=== PATIENT | female | born 1985 | race Hispanic/Latino ===

== ENCOUNTER 2019-06-17 15:02 | Outpatient (CLI) | payer OTHER, SELFPAY ==
[2019-06-17 15:43] LABS: Alanine Aminotransferase 40 U/L (4-35); Aspartate Amino Transferase 40 U/L (14-36)
== END 2019-06-17 15:03 | disposition home or self-care (01) ==
LOC: ANHLAB 15:04
PROVIDERS: PCP Family Medicine; Visit Provider Podiatrist Foot & Ankle Surgery
DX: B35.1 Tinea unguium (principal)
CPT/HCPCS: 36415; 84450; 84460

== ENCOUNTER 2020-04-29 02:14 | Outpatient (CLI) | payer OTHER, SELFPAY ==
[2020-04-29 17:23] LABS: SARS-CoV-2 RNA PCR Negative
== END 2020-04-29 02:15 | disposition home or self-care (01) ==
LOC: ANHCOVIDDT 02:15
PROVIDERS: PCP Family Medicine; Visit Provider Obstetrics & Gynecology
DX: Z01.812 Encounter for preprocedural laboratory examination (principal); Z20.822 Contact with and (suspected) exposure to COVID-19
CPT/HCPCS: C9803; U0003

== ENCOUNTER 2020-05-02 01:15 | Day surgery (SDC) | payer OTHER, SELFPAY ==
[2020-04-21 14:34] VITALS: BMI 36.6
--- NOTE | 2020-04-29 15:54 | PM.IMHP ---
H&P: HPI History of Present Illness Date/Time: 04/29/20 15:54 Chief Complaint: Sterilization Narrative: Jessica Cunningham is a 34 year old female who requests sterilization. She has an Nexplanon device in place as well Review of Systems Review of Systems: All systems reviewed & are unremarkable except as noted in HPI and below PMFSH Past Medical History Medical History Depression Vaginal delivery Surgical History Surgical History History of cholecystectomy 2019 Hx of LASIK 2020 Family History Family History Mother Diabetes mellitus Family history of arthritis Father Hypertension Patient's father is in good health Sibling Hypertension Patient's sister is in good health Patient's brother is in good health Social History Social History Smoking status: Never smoker Alcohol intake: current Drinks per week: 1 Substance use: never Spiritual care concerns: No Meds Home Medications and Allergies Home Medications Medication Instructions Recorded Confirmed Type cholecalciferol (vitamin D3) 10 10 mcg PO DAILY 03/07/20 04/21/20 History mcg (400 unit) capsule multivitamin 1 cap PO DAILY 03/07/20 04/21/20 History Allergies Allergy/AdvReac Type Severity Reaction Status Date / Time No Known Allergies Allergy Verified 04/21/20 14:19 Exam Const: General: no acute distress, alert and awake Resp: Auscultation: clear to auscultation bilaterally Cardio: Rate: regular rate Rhythm: regular rhythm GI: Inspection: non-distended GI Palp: Yes Soft to palpation and No Tenderness to palpation present (GI) : External Female Exam: normal external appearance Bimanual exam- vagina & uterus: normal bimanual exam, uterine size normal, uterine mobility normal, non-tender and soft Bimanual Exam- Adnexa, other: normal adnexae, no masses and No adnexal tenderness Extrem: General: no pedal edema and no calf tenderness Psych: Mental Status: mental status grossly normal Assessment and Plan Assessment and plan (1) Encounter for sterilization: Code(s): Z30.2 - Encounter for sterilization Status: Acute Assessment and Plan: She signed consent for L/S BTL with Filshie clips and Nexplanon removal after risks, benefits, complications, and alternatives discussed. She expressed understanding and wishes to proceed.
[2020-05-02] VITALS (9 sets, daily range): BP systolic 119–157; BP diastolic 63–98; PULSE 50–67; RESP 12–16; TEMP 36.3–36.7; O2SAT 98–100; BMI 38.8
[2020-05-02] MEDS: KETOROLAC 15 MG/ML VIAL (*BKC) IV PUSH (10:21)
[2020-05-02] MEDS: ACETAMINOPHEN 500 MG TABLET 1000 MG PO (10:22)
[2020-05-02] MEDS: LACTATED RINGERS 1,000 ML 30 ML IV CONT ×2 (10:22→12:30)
--- NOTE | 2020-05-02 11:05 | WPDANESEPPF ---
Anes - Initial Pre Proc Eval Procedure: Operation Date: 05/02/20 12:00 Proposed Procedures p Laparoscopic Bilateral Tubal Ligation With Filshie Clips, Nexplanon Removal - Shantell Peck MD Date/Time: 05/02/20 11:05 Surgeon: Shantell Peck MD Pre Op Diagnosis: Requests Sterilization Patient Data Age: 34 Gender: F Height: 5 ft 2 in Weight: 96.4 kg Last Vital Signs Temp 36.7 C 05/02/20 09:59 Pulse 67 05/02/20 09:59 Resp 16 05/02/20 09:59 BP 141/98 H 05/02/20 09:59 Pulse Ox 100 05/02/20 09:59 Allergies Allergy/AdvReac Type Severity Reaction Status Date / Time No Known Allergies Allergy Verified 05/02/20 10:06 Home Medications Medication Instructions Recorded Confirmed Type cholecalciferol (vitamin D3) 10 10 mcg PO DAILY 03/07/20 05/02/20 History mcg (400 unit) capsule multivitamin 1 cap PO DAILY 03/07/20 05/02/20 History Patient hx anesthesia problems: none Family hx anesthesia problems: none PMFSH Past Medical History Medical History Depression Vaginal delivery Surgical History Surgical History History of cholecystectomy 2019 Hx of LASIK 2020 Family History Family History Mother Diabetes mellitus Family history of arthritis Father Hypertension Patient's father is in good health Sibling Hypertension Patient's sister is in good health Patient's brother is in good health Social History Social History Smoking status: Never smoker Alcohol intake: current Drinks per week: 1 Substance use: never Living arrangements: with family Spiritual care concerns: No Anes - Eval Final PreProcedure Day of Procedure 05/02/20 11:05 Patient weight: obese Heart: regular rate and rhythm Lungs: clear to auscultation Airway: Mallampati scale class II Neurological: alert and oriented Last oral intake: >/= 8 hours ASA classification: II Emergent: no Anesthetic plan: proceed Anesthesia type and monitoring: general ETT and standard monitoring Informed Consent: The patient's anesthetic plan and its attendant risks and benefits were discussed with the patient/family/POA. Questions were solicited and answers provided to the satisfaction of the patient/family/POA.
--- NOTE | 2020-05-02 11:34 | WPDHPUPDATE1 ---
History and Physical Update Update Date/Time: 05/02/20 11:34 History and Physical has been reviewed, including an updated exam of the patient. There are NO changes in the patient's condition. Risks, benefits, and alternatives have been discussed and questions answered. Patient agrees to proceed with procedure.
--- NOTE | 2020-05-02 11:51 | P.OP_ITS ---
Procedure Note - Detailed Date of procedure: 05/02/20 Pre-op diagnosis: Requests Sterilization Post-op diagnosis: same Procedure performed: L/S BTL with Filshie clips + removal of Nexplanon Description of procedure: She was taken to the operating room where general anesthesia was obtained. She was prepared and draped in the normal sterile fashion in the dorsal lithotomy position. Marcaine was injected infraumbilically. A 5 mm skin incision was made in the infraumbilical fold. A 5 mm non bladed trocar was placed with the camera in the trocar under direct visualization into the peritoneal cavity. Insufflation was begun. She was mihir james in Trendelenburg. An 8 mm skin incision was made in the midline suprapubic area. An 8 mm trocar was then placed under direct visualization. Inspection of the pelvis revealed the findings as noted below. The left fallopian tube was identified. A Filshie clip was placed on the mid isthmic portion of the left fallopian tube, making sure the entire circumference of the tube was contained in the clip. The same procedure was then performed on the right fallopian tube. All operative sites were noted to be hemostatic. The pneumoperitoneum was allowed to escape. Both trocars were removed. Both skin incisions were closed using 4 0 Monocryl in subcuticular fashion. Attention was then turned to the patient's left arm. The Nexplanon device was easily palpable. A katie was made with a marking pen at the distal end of the Nexplanon device. Lidocaine was injected subcuticularly underneath the tip of the device. A small skin incision was made over the marked using a scalpel. The device was easily visible. The device was grasped with a hemostat and removed easily intact. Pressure was held until hemostasis was assured. Steri- Strips were placed on the incision. Her arm was then wrapped with Coban. She tolerated the procedures well. Sponge, lap, needle, and instrument counts were correct x2. She was taken to the recovery room in stable condition. Anesthesia: GETA Surgeon: Shantell Peck MD Estimated blood loss (mL): 5 Drains: No Packing: No Pathology: none sent Complications: No immediate complications Condition: stable Disposition: PACU Findings: Normal uterus, tubes, ovaries, liver, and appendix
[2020-05-02] MEDS: LIDO 1%/EPINEPHRINE 1:100,000 50 ML VIAL 30 ML INFILTRATE (12:16)
[2020-05-02] MEDS: HYDROmorphone HCL INJ (*CRX) 1 MG/ML SYR 0.5 MG IV PUSH ×6 (12:40→13:05)
[2020-05-02] MEDS: ONDANSETRON INJ 4 MG/2 ML VIAL IV PUSH (14:11)
== END 2020-05-02 14:52 | disposition home or self-care (01) ==
PROVIDERS: PCP Family Medicine; Visit Provider Obstetrics & Gynecology
PROC: (CPT 58671; principal; 2020-05-02 12:00)
DX: Z30.2 Encounter for sterilization (principal); Z30.49 Encounter for surveillance of other contraceptives; F32.9 Major depressive disorder, single episode, unspecified; E66.9 Obesity, unspecified; Z68.38 Body mass index [BMI] 38.0-38.9, adult
CPT/HCPCS: 11982; 58671; A9270; J1170; J1885; J2250; J2405; J2704; J3010; J7120

== ENCOUNTER 2020-12-29 13:49 | Outpatient (CLI) | payer OTHER, SELFPAY ==
--- NOTE | ~2020-12-29 | MMUS_ITS ---
EXAMINATION: MM diagnostic pk BI w vilma, US breast LT limited HISTORY: Left breast lump TECHNIQUE: ML, MLO and craniocaudal 3-D tomosynthesis images of both breasts were performed and synth etic 2-D images were generated. CAD analysis was submitted and interpreted. High resolution upper out er quadrant and lower outer quadrant left breast ultrasound was performed. COMPARISON: None BREAST PARENCHYMAL COMPOSITION: There are scattered areas of fibroglandular density. FINDINGS: MAMMOGRAPHIC FINDINGS: A circumscribed approximately 3 cm mass is noted anteriorly in the upper outer quadrant of left breas t; history of prior benign biopsy of this lesion according to the patient. There is a circumscribed 5 mm mass in the lower outer left breast. Otherwise no suspicious mass, architectural distortion, malignant calcification, skin thickening or r etraction of either breast is detected. ULTRASOUND: Left breast 2:00 6 cm from nipple: There is a circumscribed smooth lobular hypoechoic solid lesion me asuring up to 2.7 x 1.6 x 2.4 cm dimension. There is some through-transmission and posterior enhancem ent but portions of the lesion demonstrate some prominent posterior shadowing. Ultrasound-guided biop sy of this area with posterior shadowing is recommended to evaluate for possible malignancy or malign ant transformation of a prior benign lesion. At 4:00 there is an irregular 9.4 x 4.8 x 6 mm hypoechoic solid lesion without evidence internal vasc ularity on color flow imaging. No posterior features are noted. Ultrasound-guided biopsy is recommend ed because of the irregular margins. IMPRESSION: 1. Suspicious shadowing from a portion of the up to 2.7 cm upper outer quadrant left breast mass at 2 :00 6 cm from nipple. Ultrasound-guided biopsy of left 2:00 lesion is recommended, concentrating the biopsy on the shadowin g portion of the lesion 2. Irregular up to 9.4 mm solid lesion at left breast 4:00 position Ultrasound-guided biopsy of left 4:00 lesion is recommended. BI-RADS category 4, suspicious findings. Dr. Nelson telephoned the report and ultrasound guided biopsy recommendations on 12/29/[address] Cisco Meza's [employer] Strainer. Reviewed, dictated and finalized at location A. IMPRESSION: 1. Suspicious shadowing from a portion of the up to 2.7 cm upper outer quadrant left breast mass at 2:00 6 cm from nipple. Ultrasound-guided biopsy of left 2:00 lesion is recommended, concentrating the biopsy on the shadowing portion of the lesion 2. Irregular up to 9.4 mm solid lesion at left breast 4:00 position Ultrasound-guided biopsy of left 4:00 lesion is recommended. BI-RADS category 4, suspicious findings. Dr. Nelson telephoned the report and ultrasound guided biopsy recommendations on 12/29/[address] Cisco Meza's [employer] Strainer.
== END 2020-12-29 13:50 | disposition home or self-care (01) ==
LOC: ANHIMG 13:51
PROVIDERS: PCP Family Medicine; Visit Provider Obstetrics & Gynecology
DX: N63.21 Unspecified lump in the left breast, upper outer quadrant (principal)
CPT/HCPCS: 76642; 77062; 77066; G0279

== ENCOUNTER 2021-01-05 10:19 | Outpatient (CLI) | payer OTHER, SELFPAY ==
--- NOTE | ~2021-01-05 | MMUS_ITS ---
MM post biopsy invasive LT, US breast bx add lesion LT, US breast biopsy LT w image EXAMINATION: US G UIDED NEEDLE BIOPSY WITH VACUUM ASSISTANCE DATE: 01/05/2021 12:05 CDT INDICATION: Multiple masses identified on recent examination. Ultrasound-guided core biopsies is req uested to evaluate for malignancy. TECHNIQUE AND FINDINGS: The risks and potential benefits of the procedure were discussed with the patient, and written inform ed consent was obtained. After sterile preparation of the left breast, 1% lidocaine was utilized for local anesthesia. 1% lidocaine with epinephrine was used for deep anesthesia. A 10G vacuum-assisted biopsy gun needle was advanced through to the outer edge of the region of inter est from a lateral approach utilizing sonographic guidance for the mass at the 2:00 position of the l eft breast. A total of three tissue core samples were obtained through the lesion. An Inrad tissue marker clip was then placed at the biopsy site. Hemostasis was achieved. A 10G vacuum-assisted biopsy gun needle was advanced through to the outer edge of the region of inter est from a lateral approach utilizing sonographic guidance for the mass at the 4:00 position of the l eft breast. A total of three tissue core samples were obtained through the lesion. An Inrad tissue marker clip was then placed at the biopsy site. Hemostasis was achieved. The patient tolerated procedure well and there was no evidence of immediate complication. The patien t was given verbal instructions partly is from the department. Left breast mammograms to document ti ssue marker clip placement. The tissue samples were submitted to surgical pathology for histologic an alysis. IMPRESSION: 1. Successful ultrasound-guided vacuum-assisted biopsies of left breast mass with tissue marker plac ement at 2 and 4:00. Please refer to pathology report for histologic analysis. Reviewed, dictated and finalized at location A. IMPRESSION: 1. Successful ultrasound-guided vacuum-assisted biopsies of left breast mass w ith tissue marker placement at 2 and 4:00. Please refer to pathology report for histologic analysis. IMPRESSION: 1. Successful ultrasound-guided vacuum-assisted biopsies of left breast mass w ith tissue marker placement at 2 and 4:00. Please refer to pathology report for histologic analysis.
== END 2021-01-05 10:20 | disposition home or self-care (01) ==
LOC: ANHIMG 10:22
PROVIDERS: PCP Family Medicine; Visit Provider Obstetrics & Gynecology
DX: N63.20 Unspecified lump in the left breast, unspecified quadrant (principal); D24.2 Benign neoplasm of left breast
CPT/HCPCS: 19083; 19084; 88305; 88342; A4648